=== PATIENT | female | born 1945 | race Caucasian/White ===

== ENCOUNTER → 2017-01-24 | Outpatient (CLI) | payer MEDICARE, BC ==
--- NOTE | ~2017-01-24 | US128 ---
[id number] [facility] [address] [facility]. [place], [place] [address] [id number] O MR#: [id number] Acc #: [id number] NAME: SOLO GASPAR : 1945 SEX: F STUDY DATE/TIME: 01/24/2017 13:22 UNIT: [facility] ROOM: STUDY DESCRIPTION: Thyroid Attending Physician: Pedro Nguyen M.D. Referring Physician: Pedro Nguyen M.D. Ordering Physician: Pedro Nguyen M.D. Primary Care Physician: Dao Miner M.D. MEDICAL IMAGING REPORT This report is preliminary unless electronic signature is present EXAM Thyroid ultrasound. DATE OF STUDY 01/24/2017 COMPARISON Prior thyroid ultrasound dated 01/09/2016. CLINICAL HISTORY Routine follow up known thyroid nodules. FINDINGS On the right, there is a solid nodule posteriorly in the mid portion of the gland. It measures 1 x 1.4 x 1.2 cm. It measured 1.2 x 1.3 x 1.5 cm previously, clearly unchanged. There is also a solid isthmic nodule which measures 2.2 x 1.9 x 1.6 cm. On the prior exam, it was measured at 1.9 x 1 cm. Longitudinal dimension was not measured on the prior study. It may have slightly increased in size but that is not at all certain. In the left lobe, there is a heterogeneous nodule measuring 1.5 x 2.2 x 2.2 cm. On the prior study, it was measured about 1.5 x 1.5 x 2.7 cm and is likely unchanged without ill-defined margins. IMPRESSION 1. Three large thyroid nodules. 1 posteriorly on the right and 1 in the left midportion if the gland clearly unchanged in size since 01/07/2016. 2. There is also a prominent isthmic nodule. It was incompletely measured on the prior study. It is probably slightly larger on the current exam, previously having measured about 1.9 cm mediolaterally and now about 2.2 cm, and previously measured at 1 cm in AP dimension and currently measured at about 1.5 cm. There is no longitudinal measurement but it does appear increased in size. It would be easily amendable to ultrasound-guided needle aspiration. 3. No other new or growing nodules. A the third solid nodule on the right seen on the prior study is actually no longer clearly evident. Dictated by... Martin Tay M.D. THIS IS AN ELECTRONICALLY VERIFIED REPORT Martin Tay M.D. at 01/25/2017 5:19 PM TEV/dean TD: 01/25/2017 13:35 JOB #: [id number] MEDICAL IMAGING REPORT Page 1 of 1 COPY
== END | disposition home or self-care (01) ==
LOC: CWCC 12:56
DX: E04.1 Nontoxic single thyroid nodule (principal); E04.9 Nontoxic goiter, unspecified
CPT/HCPCS: 76536